=== PATIENT | female | born 1955 ===

== ENCOUNTER 2024-08-20 12:58 | Emergency (ER) | payer OTHER, SELFPAY ==
[2024-08-20 13:04] VITALS: BP 160/100
--- NOTE | 2024-08-20 13:05 | ED.GENMED ---
ED Provider Triage
<Rosalba Cherry NP - Last Filed: 08/20/24 13:51>
-
Patient seen by provider in Triage?: Seen in Triage
HPI: 68 yo female w h/o hypothyroid, Htn, IBS, GERD, colon resection for 'large polyps,' cholecystectomy, endoscopy 06/07/24: Prilosec 40 mg daily is not helping. Here for abdominal pain, worse after eating, worse laying down. Has spasm type
abdominal pains intermittent, denies abd pain now
GENERAL: Alert , in no apparent distress
EYE: No visual abnormalities.
ENT: No visible abnormalities.
LUNGS: No acute respiratory distress
NEUROLOGICAL: Alert and oriented
SKIN: Skin intact. No visible changes.
MUSCULOSKELETAL: Moving extremities normally
PSYCH: Normal and appropriate interaction.
This is a medical evaluation conducted in person to initiate diagnostic evaluation and provide initial therapeutics. Please see further documentation by the treating clinician.
History of Present Illness
<Rosalba Cherry NP - Last Filed: 08/20/24 13:51>
General
Chief Complaint: Abdominal Pain
Time Seen by Provider: 08/20/24 13:05
<Rob Ramirez PA-C - Last Filed: 08/20/24 19:01>
General
Source: patient
History of Present Illness
History of Present Illness:
68-year-old female with past medical history of hypertension, hyperlipidemia, GERD presenting to the emergency department for evaluation of increased reflux-like sensation and abdominal spasm that has increased while eating over the last 24 to 48
hours noting that she has had the symptoms in the past but they usually resolve on their own. Patient notes that her GI doctor recently increased her Prilosec which she has been taking faithfully but states it does not seem to be helping over the
last day and a half. Patient also noted to me that she woke up last night in a cold sweat and thought she might be having some more upper abdominal/chest discomfort which is now fully resolved. Patient denies any fevers, chills, rigors, vomiting,
bowel changes or urinary symptoms. She did state maybe a little less flatus than what is typical for her. Surgical history was noted for previous bowel resection and cholecystectomy.
Past History
<Rob Ramirez PA-C - Last Filed: 08/20/24 19:01>
Past History
ED Past Medical History: GERD, HTN, Hypercholesterolemia and Hypothyroidism
ED Past Surgical History: Bowel resection and Cholecystectomy
Social History
Tobacco: Non-smoker
Alcohol: None
Drug: None
Personal:
Living: with family
Review of Systems
<Rob Ramirez PA-C - Last Filed: 08/20/24 19:01>
Review of Systems
All Other Systems: ROS reviewed and negative except as documented in HPI and ROS
Phy Exam
<Rob Ramirez PA-C - Last Filed: 08/20/24 19:01>
Physical Exam
Physical Exam:
GENERAL: Alert , in no apparent distress
EYE: clear conjunctiva b/l
HEAD: NCAT
ENT: o/p clr, mmm.
CARDIAC: Regular rate and rhythm .
LUNGS: Clear breath sounds bilaterally, no acute respiratory distress, no wheezes/rales/rhonchi
ABDOMEN: Soft, without focal tenderness, no r/g, no cvat
NEUROLOGICAL: Alert and oriented
SKIN: Warm and dry, skin intact.
MUSCULOSKELETAL: No edema, well perfused.
PSYCH: Normal and appropriate interaction.
Scores
<TRANG Weems Last Filed: 08/20/24 19:01>
Heart Failure Risk
Heart Failure Risk Score: Not Applicable
Heart Score for Chest Pain Patients
STEMI patient?: Not applicable
Withdrawal Assessment of Alcohol
Withdrawal Assessment Completed?: Not applicable
Course
<Rosalba V. Day, ADVICE LINE RN - Last Filed: 08/20/24 13:51>
Orders/Labs/Results
Orders:
Orders
08/20/24 13:09
CT Abd/Pel (IV only)-[facility] only Urgent
Comment:
Reason For Exam: general abd pain
08/20/24 13:14
Complete Blood Count/With Diff Urgent
Comprehensive Metabolic Panel Urgent
Lipase Urgent
08/20/24 15:05
US Abdomen Complete/Upper Urgent
Comment:
Reason For Exam: abd cramping, elevated LFT, worse after eating
08/20/24 16:24
Electrocardiogram (*1) Urgent
Reason for Study: Abdominal Pain
EKG- Treatment ONCE
Mag Hydrox/Al Hydrox/Simeth [Maalox] 30 ml Phenobarb/Hyoscy/Atropine/Scop [] 10 ml Viscous Lidocaine 2% [Xylocaine Viscous Cup] 10 ml PO NOW
08/20/24 16:37
Troponin I Urgent
08/20/24 16:38
Phenobarb/Hyoscy/Atropine/Scop [] 10 ml .ROUTE .STK-MED ONE
08/20/24 16:39
Mag Hydrox/Al Hydrox/Simeth [Maalox] 30 ml .ROUTE .STK-MED ONE
Viscous Lidocaine 2% [Xylocaine Viscous Cup] 15 ml .ROUTE .STK-MED ONE
Abnormal Lab Results
08/20/24
13:14
MCH 31.4 H pg
(27.0-31.0)
Absolute Neuts (auto) 7.1 H 10^3/uL
(1.4-6.5)
Absolute Lymphs (auto) 1.1 L 10^3/uL
(1.2-3.4)
Neutrophils % 82.1 H %
(42.2-75.2)
Lymphocytes % 12.3 L %
(20.5-51.1)
BUN 26 H mg/dl
(7-17)
Glucose 148 H mg/dl
(70-99)
Calcium 10.8 H mg/dl
(8.4-10.2)
AST 60 H U/L
(14-36)
ALT 41 H U/L
(0-35)
Total Protein 8.7 H g/dl
(6.3-8.2)
Albumin 5.2 H g/dl
(3.5-5.0)
08/20/24 13:14
08/20/24 13:14
Vital Signs
Initial and Last Documented VS:
Initial Vital Signs
Temp Pulse Resp BP Pulse Ox
98.2 F 79 16 160/100 98
08/20/24 13:04 08/20/24 13:04 08/20/24 13:04 08/20/24 13:04 08/20/24 13:04
Last Documented Vital Signs
Temp Pulse Resp BP Pulse Ox
97.6 F 86 20 136/71 99
08/20/24 18:34 08/20/24 18:34 08/20/24 18:34 08/20/24 18:34 08/20/24 18:34
<Rob Ramirez PA-C - Last Filed: 08/20/24 19:01>
Orders/Labs/Results
Orders:
Orders
08/20/24 13:09
CT Abd/Pel (IV only)-[facility] only Urgent
Comment:
Reason For Exam: general abd pain
08/20/24 13:14
Complete Blood Count/With Diff Urgent
Comprehensive Metabolic Panel Urgent
Lipase Urgent
08/20/24 15:05
US Abdomen Complete/Upper Urgent
Comment:
Reason For Exam: abd cramping, elevated LFT, worse after eating
08/20/24 16:24
Electrocardiogram (*1) Urgent
Reason for Study: Abdominal Pain
EKG- Treatment ONCE
Mag Hydrox/Al Hydrox/Simeth [Maalox] 30 ml Phenobarb/Hyoscy/Atropine/Scop [] 10 ml Viscous Lidocaine 2% [Xylocaine Viscous Cup] 10 ml PO NOW
08/20/24 16:37
Troponin I Urgent
08/20/24 16:38
Phenobarb/Hyoscy/Atropine/Scop [] 10 ml .ROUTE .STK-MED ONE
08/20/24 16:39
Mag Hydrox/Al Hydrox/Simeth [Maalox] 30 ml .ROUTE .STK-MED ONE
Viscous Lidocaine 2% [Xylocaine Viscous Cup] 15 ml .ROUTE .STK-MED ONE
Abnormal Lab Results
08/20/24
13:14
MCH 31.4 H pg
(27.0-31.0)
Absolute Neuts (auto) 7.1 H 10^3/uL
(1.4-6.5)
Absolute Lymphs (auto) 1.1 L 10^3/uL
(1.2-3.4)
Neutrophils % 82.1 H %
(42.2-75.2)
Lymphocytes % 12.3 L %
(20.5-51.1)
BUN 26 H mg/dl
(7-17)
Glucose 148 H mg/dl
(70-99)
Calcium 10.8 H mg/dl
(8.4-10.2)
AST 60 H U/L
(14-36)
ALT 41 H U/L
(0-35)
Total Protein 8.7 H g/dl
(6.3-8.2)
Albumin 5.2 H g/dl
(3.5-5.0)
08/20/24 13:14
08/20/24 13:14
Vital Signs
Initial and Last Documented VS:
Initial Vital Signs
Temp Pulse Resp BP Pulse Ox
98.2 F 79 16 160/100 98
08/20/24 13:04 08/20/24 13:04 08/20/24 13:04 08/20/24 13:04 08/20/24 13:04
Last Documented Vital Signs
Temp Pulse Resp BP Pulse Ox
97.6 F 86 20 136/71 99
08/20/24 18:34 08/20/24 18:34 08/20/24 18:34 08/20/24 18:34 08/20/24 18:34
<Rob Ramirez PA-C - Last Filed: 08/20/24 19:01>
MDM/Problems Addressed
Differential Diagnosis Includes:
GERD/gastritis, duodenitis, pancreatitis, atypical ACS presentation, IBS
MDM/Problems Addressed:
68-year-old female presenting to the ER for evaluation of reflux-like sensation and spasming like pain, worse with eating, some diminished intake to solids today due to fear of exacerbating the symptoms. No focal abdominal exam findings. No fevers
or infectious symptoms. Patient did report cold sweats/chest discomfort last night so will obtain EKG and troponin. CT scan of the abdomen pelvis ordered from triage but patient did have elevated LFTs. Question retained common bile duct stone.
Ultrasound ordered as well. Disposition pending
Chronic conditions affecting care: Previous abdomnial surgery
<Rob Ramirez PA-C - Last Filed: 08/20/24 19:01>
*Radiology
Radiology exam reviewed: radiology read reviewed
*Pulse Oximetry
Patient hypoxic: no
*EKG
Interpreted by ED Provider?: Yes
Heart Rate: 66
Rate: normal
Rhythm: sinus
[place]: normal axis
Ischemia: no ischemia
*Critical Care Note
Total Time (30-74mins, 75-104mins- exclusive of procedures): Not Applicable
Data Reviewed
Review of Other/Old Records Reveals: Radiology Studies
Source: patient
<Rob Ramirez PA-C - Last Filed: 08/20/24 19:01>
Patient Management
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
Escalation/DeEscalation of care consider admission/obs:
Patient's abdominal ultrasound shows no acute abnormalities. CT of the abdomen and pelvis showed no definitive transition point to suggest small bowel obstruction although cannot entirely exclude this as a diagnosis. Possible ileus vs enteritis.
Patient is able to tolerate PO here without difficulty, no vomiting so my suspicion for SBO/ileus is quite low. Symptoms seems to be more suggestive of GERD/gastritis. Patient did report significant relief with GI cocktail. She will follow up with
her PCP and GI physician. Aware of return precautions
ED Attending Note
<Rosalba Cherry NP - Last Filed: 08/20/24 13:51>
-
Portions of this chart may have been created with voice recognition software.� Occasional wrong word or��sound alike� substitutions may have occurred due to the inherent limitations of voice recognition software.
Discharge Plan
Departure
Patient Disposition: Home (Routine Discharge)
Date of Disposition: 08/20/24
Time of Disposition: 18:19
Patient with high blood pressure during this ER visit?: No
Discharge Problem:
Acid reflux
Instructions: Acid Reflux and GERD in Adults (DC)
Prescriptions:
New
alum-mag hydroxide-simeth [Maalox Advanced] 200-200-20 mg/5 mL suspension
10 ml PO QID PRN (Reason: dyspepsia) Qty: 1000 0RF
Interventions
Interventions:
*Risk Screen - Suicide Last Done: 08/20/24 13:04
*General Assessment Last Done: 08/20/24 15:10
*Neglect/Abuse Screening Last Done: 08/20/24 13:04
ED- Fall Risk Assessment Last Done: 08/20/24 15:10
*ED COVID-19 Vaccine History Last Done: 08/20/24 15:10
*Nursing Disposition Last Done: 08/20/24 18:34
[facility] Assessment Last Done: 08/20/24 15:10
Discharge Date and Time
Discharge Date/Time: 08/20/24 18:36
Print Language: FAROESE
[2024-08-20 13:28] LABS: % Basophils 0.5 % (0-2); % Eosinophils 0.5 % (0-6); % Immature Granulocytes 0.2 % (0-0.5); % Lymphocytes 12.3 % (20.5-51.1); % Monocytes 4.4 % (1.7-9.3); % Neutrophils 82.1 % (42.2-75.2); Absolute Lymphocytes 1.1 10^3/uL (1.2-3.4); Absolute Monocytes 0.4 10^3/uL (0.1-0.6); Absolute Neutrophils 7.1 10^3/uL (1.4-6.5); Hematocrit 43.8 % (37.0-47.0); Hemoglobin 14.7 g/dL (12.0-16.0); Mean Corp Hgb Conc. 33.6 g/dL (33.0-37.0); Mean Corpuscular Hgb 31.4 pg (27.0-31.0); Mean Corpuscular Volume 93.6 fL (81.0-99.0); Mean Platelet Volume 9.2 fL (7.4-10.4); Nucleated Red Blood Cells % 0 %; Platelet Count 299 10^3/uL (130-400); Red Blood Cell Count 4.68 10^6/uL (4.20-5.40); Red Cell Dist. Width 12.3 % (11.5-14.5); White Blood Cell Count 8.6 10^3/uL (4.8-10.8)
[2024-08-20 13:41] LABS: ALT (SGPT) 41 U/L (0-35); AST (SGOT) 60 U/L (14-36); Albumin 5.2 g/dl (3.5-5.0); Alkaline Phosphatase 64 U/L (38-126); Blood Urea Nitrogen 26 mg/dl (7-17); Calcium 10.8 mg/dl (8.4-10.2); Carbon Dioxide 28 mmol/L (22-30); Chloride 100 mmol/L (98-107); Glucose 148 mg/dl (70-99); Potassium 5.1 mmol/L (3.5-5.1); Sodium 141 mmol/L (135-145); Total Bilirubin 0.8 mg/dl (0.2-1.3); Total Protein 8.7 g/dl (6.3-8.2); eGFR > 60.00
[2024-08-20 13:44] LABS: Lipase 38 U/L (23-300)
[2024-08-20 15:10] VITALS: BP 136/71; BMI 25.1
[2024-08-20] MEDS: MAALOX 50 PO (16:39)
[2024-08-20 17:10] LABS: Troponin I < 0.012 ng/ml
[2024-08-20 18:34] VITALS: BP 136/71
== END 2024-08-20 18:36 | disposition home or self-care (01) ==
LOC: EMR 12:58
PROVIDERS: Physician Assistant Medical; Registered Nurse; EMERGENCY PHYSICIAN Emergency Medicine; FAMILY PHYSICIAN Family Medicine
DX: K21.9 Gastro-esophageal reflux disease without esophagitis (principal); R07.89 Other chest pain; E03.9 Hypothyroidism, unspecified; I10 Essential (primary) hypertension; E78.00 Pure hypercholesterolemia, unspecified; Z90.49 Acquired absence of other specified parts of digestive tract
CPT/HCPCS: 99284; 74177; 76700; 80053; 83690; 84484; 85025; 93005; Q9967